=== PATIENT | male | born 1945 | race Hispanic/Latino ===

== ENCOUNTER 2022-01-02 09:36 | Outpatient (CLI) | payer MEDICARE ==
[2022-01-02] MEDS ORDERED: REGADENOSON 0.4 MG/5 ML INJ IV ONE (10:32)
[2022-01-02 13:01] VITALS: BP 120/59
--- NOTE | 2022-01-03 11:29 | Nuclear Medicine Report ---
APPROVED REPORT Exam: Nuclear Stress Test Indication: Chest pain Patient Location: OUTPATIENT Room #: STRESS LAB 2 Ht: 5 ft 10 in Wt: 160 lbs BSA: 1.90 m2 HR: 55 bpmBP: 141/62 mmHgBMI: 22.95 Rhythm: Sinus Bradycardia Stress Test Details Stress Test: Pharmacologic stress testing performed using 0.4 mg of regadenoson per 5 mL given IV over 10 seconds. Reason for pharmacologic stress test: physical limitation. HR Resting HR: 55 bpm Max HR Achieved: 83 bpm Max Heart Rate (APMHR): 142 bpm Target HR (85% APMHR): 120 bpm % of APMHR: 58 Recovery HR: 83 bpm BP Resting BP: 139/64 mmHg Max BP: 141/62 mmHg Recovery BP: 123/62 mmHg ECG Resting ECG: Sinus Bradycardia Stress ECG: Sinus Rhythm,non specific T wave changes noted. ST Change: None Arrhythmia: None Recovery ECG: Sinus Rhythm Recovery ST Change: None Recovery Arrhythmia: None Clinical Reason for Termination: Completed protocol Stress Symptoms: None NM EXAM: Myocardial Perfusion REST/STRESS Imaging Protocol: Rest Tc-99m/Stress Tc-99m 1 day Resting Data Rest SPECT myocardial perfusion imaging was performed in supine position 45 minutes following the intravenous injection of 10 mCi of Tc-99m Myoview. Time of rest injection: 1000 Date: 01/02/2022 Pharmacologic Stress Pharmacologic stress test was performed by injecting Regadenoson 0.4 mg IV push followed by the intravenous injection of 28 mCi of Tc-99m Myoview. Time of stress injection: 1200 Date: 01/02/2022 Gated Stress SPECT was performed 30 minutes after stress injection. The images were gated to evaluate regional wall motion and calculate left ventricular ejection fraction. Study Quality Study: excellent Lung Uptake: Normal Study Data TID = 0.95. Perfusion Wall Motion The rest and stress images show normal left ventricular wall motion.Post calculated LVEF of 73% noted. Nuclear Conclusion ECG Findings: negative for ischemia Clinical Findings: negative for ischemia Exercise Capacity: not assessed Left Ventricular Function: normal Risk Study: low Normal study. No scintigraphic evidence for myocardial ischemia or scar.
== END 2022-01-02 09:37 | disposition home or self-care (01) ==
LOC: CARD 09:36
PROVIDERS: ATTEND Internal Medicine
DX: I25.10 Atherosclerotic heart disease of native coronary artery without angina pectoris (principal); J43.8 Other emphysema; I50.32 Chronic diastolic (congestive) heart failure; Z95.1 Presence of aortocoronary bypass graft; Z99.81 Dependence on supplemental oxygen
CPT/HCPCS: 78452; 93017; A9502; J2785